=== PATIENT | female | born 2000 | race African-American/Black ===

== ENCOUNTER 2023-12-26 20:49 | Emergency (ER) | payer OTHER ==
[2023-12-26 21:05] VITALS: RESP 18; TEMP 98.5; BMI 37.1
[2023-12-26] MEDS: ACETAMINOPHEN 1000 MG/100 ML BAG IVPB ONE (21:49)
[2023-12-26] MEDS: LACTATED RINGERS SOLUTION 1000 ML INFUS.BAG IV ONE (21:49)
[2023-12-26] MEDS ORDERED: METOCLOPRAMIDE HCL INJECTION 10 MG/2 ML VIAL ONE (21:50)
[2023-12-26] MEDS: METOCLOPRAMIDE HCL INJECTION 10 MG/2 ML VIAL IVPB ONE (21:52)
[2023-12-26 21:56] LABS: BASO % 0.5 % (0-2.0); EOS % 0.5 % (0-4.5); HEMATOCRIT 39.6 % (32.4-45.2); HEMOGLOBIN 13.4 GM/dL (10.7-15.3); LYMPH % 39.1 % (8-40); MCH 29.1 pg (25.7-33.7); MCHC 33.9 g/dl (32.0-36.0); MEAN CELL VOLUME 85.8 fl (80-96); MEAN PLT VOLUME 9.2 fl (7.5-11.1); MONO % 7.2 % (3.8-10.2); NEUT % 52.7 % (42.8-82.8); PLATELET COUNT 357 10^3/uL (134-434); RBC 4.62 M/mm3 (3.60-5.2); RDW 13.5 % (11.6-15.6); WHITE BLOOD COUNT 12.1 K/mm3 (4.0-10.0)
[2023-12-26 22:14] LABS: PH,URINE 6.5 (5.0-8.0); URINE APPEARANCE CLEAR; URINE BILIRUBIN NEGATIVE (NEGATIVE); URINE COLOR YELLOW; URINE GLUCOSE (UA) NEGATIVE (NEGATIVE); URINE KETONE NEGATIVE (NEGATIVE); URINE LEUK ESTERASE NEGATIVE (NEGATIVE); URINE NITRITE NEGATIVE (NEGATIVE); URINE PROTEIN NEGATIVE (NEGATIVE)
[2023-12-26 22:19] LABS: POTASSIUM 4.2 mmol/L (3.5-5.1)
[2023-12-26 22:21] LABS: ALBUMIN 3.3 g/dl (3.4-5.0); BLOOD UREA NITROGEN 3.7 mg/dL (7-18); CALCIUM 9.1 mg/dL (8.5-10.1)
[2023-12-26 22:24] LABS: CREATININE 0.6 mg/dL (0.55-1.3)
[2023-12-26 22:26] LABS: BILIRUBIN,TOTAL 0.2 mg/dL (0.2-1)
[2023-12-26 22:35] VITALS: BP 107/54; PULSE 75
[2023-12-26 22:46] LABS: INR 1.04 (0.83-1.09); PROTHROMBIN TIME (PATIENT) 12.1 SEC (9.7-13.0)
[2023-12-26 22:48] LABS: ACTIVATED PTT 29.5 SECONDS (25.2-36.5)
== END 2023-12-27 00:08 | disposition home or self-care (01) ==
LOC: JER 20:49
PROC: 3E033NZ Introduction of Analgesics, Hypnotics, Sedatives into Peripheral Vein, Percutaneous Approach (ICD-10-PCS; principal; 2023-12-26)
PROC: 3E033GC Introduction of Other Therapeutic Substance into Peripheral Vein, Percutaneous Approach (ICD-10-PCS; 2023-12-26)
DX: O99.891 Other specified diseases and conditions complicating pregnancy (principal); R51.9 Headache, unspecified; Z3A.16 16 weeks gestation of pregnancy
CPT/HCPCS: 36415; 80053; 81003; 83615; 83735; 84702; 85025; 85610; 85730; 87086; 93005; 93010; 99284-25; J0131

== ENCOUNTER 2024-01-06 12:59 | Emergency (ER) | payer OTHER ==
[2024-01-06 13:27] VITALS: BP 136/73; RESP 18; TEMP 98.7; BMI 37.1
[2024-01-06 14:08] LABS: THROAT:GRP A STREP NOT DETECTED (NOTDETECTED)
[2024-01-06] MEDS: SODIUM CHLORIDE 0.9% 500 ML INFUS.BAG IV ONE (14:12)
[2024-01-06 15:11] VITALS: PULSE 104
== END 2024-01-06 15:11 | disposition home or self-care (01) ==
LOC: JER 12:59
DX: O99.891 Other specified diseases and conditions complicating pregnancy (principal); R50.9 Fever, unspecified; R05.9 Cough, unspecified; O99.352 Diseases of the nervous system complicating pregnancy, second trimester; R51.9 Headache, unspecified; O99.512 Diseases of the respiratory system complicating pregnancy, second trimester; J06.9 Acute upper respiratory infection, unspecified; Z20.822 Contact with and (suspected) exposure to COVID-19; Z3A.18 18 weeks gestation of pregnancy
CPT/HCPCS: 0241U-QW; 87651; 99283-25

== ENCOUNTER 2024-05-23 10:03 | Inpatient (IN) | payer OTHER ==
[2024-05-23] MEDS: DEXTROSE 5%-LACTATED RINGERS 1,000 ML IV SCH (10:30)
[2024-05-23] MEDS: CITRIC ACID/SODIUM CITRATE 30 ML UNIT-DOSE CUP PO ONE (12:30)
[2024-05-23] MEDS ORDERED: IBUPROFEN 600 MG TABLET (FP) PO PRN (13:30)
[2024-05-23] MEDS ORDERED: ACETAMINOPHEN 325 MG TABLET (FP) PO PRN (13:30)
[2024-05-23] MEDS ORDERED: FENTANYL CITRATE/PF 50 MCG/ML VIAL ONE (14:11)
[2024-05-23] MEDS ORDERED: morphine SULFATE/PF 1 MG/2 ML (2cc Syringe - QUVA) ONE (14:11)
[2024-05-23] MEDS ORDERED: ceFAZolin SODIUM 1 GM VIAL ONE ×2 (14:30)
[2024-05-23] MEDS ORDERED: KETOROLAC TROMETHAMINE 30 MG/1 ML VIAL ONE (14:34)
[2024-05-23] MEDS ORDERED: DEXAMETHASONE SOD PHOSPHATE 4 MG/1 ML VIAL ONE (14:34)
[2024-05-23] MEDS ORDERED: OXYTOCIN 10 UNITS/ML VIAL ONE ×3 (14:34)
[2024-05-23] MEDS ORDERED: ONDANSETRON 4 MG/2 ML VIAL ONE ×2 (14:34)
[2024-05-23] MEDS: OXYTOCIN 20 UNITS in 0.9% NS 20 UNIT/1,000 ML INFUS.BAG IV SCH (15:30)
[2024-05-23] MEDS ORDERED: METHYLERGONOVINE MALEATE 0.2 MG/1 ML AMP IM PRN (15:44)
[2024-05-23] MEDS ORDERED: IBUPROFEN 800 MG/8 ML IJ IVPB PRN (15:44)
[2024-05-23] MEDS ORDERED: OXYTOCIN 20 UNITS in 0.9% NS 20 UNIT/1,000 ML INFUS.BAG IV ONE (16:30)
[2024-05-23] MEDS ORDERED: ACETAMINOPHEN INJECTION 100 ML ONE (16:37)
[2024-05-23] MEDS: ACETAMINOPHEN 1000 MG/100 ML BAG IVPB PRN (16:49)
[2024-05-24] MEDS: FERROUS SO4 325 MG TABLET (FP) PO SCH (08:53)
[2024-05-24 09:16] LABS: BASO % 0.2 % (0-2.0); HEMATOCRIT 31.9 % (32.4-45.2); HEMOGLOBIN 9.8 GM/dL (10.7-15.3); MCH 20.7 pg (25.7-33.7); MCHC 30.7 g/dl (32.0-36.0); MEAN CELL VOLUME 67.3 fl (80-96); MEAN PLT VOLUME 8.7 fl (7.5-11.1); MONO % 7.9 % (3.8-10.2); NEUT % 77.9 % (42.8-82.8); PLATELET COUNT 326 10^3/uL (134-434); RBC 4.75 M/mm3 (3.60-5.2); RDW 18.9 % (11.6-15.6); WHITE BLOOD COUNT 15.6 K/mm3 (4.0-10.0)
[2024-05-24] MEDS: PRENATAL VITAMINS W/ FOLIC ACID TABLET (FP) PO SCH (11:49)
[2024-05-24] MEDS: IBUPROFEN 600 MG TABLET (FP) PO PRN (11:49)
[2024-05-24] MEDS: SIMETHICONE 80 MG TAB.CHEW (FP) PO PRN (11:51)
[2024-05-24] MEDS ORDERED: BISACODYL 10 MG SUPP.RECT RC PRN (15:44)
[2024-05-24] MEDS: SENNOSIDES/DOCUSATE COMBO (SENNA PLUS) TABLET (UD) PO PRN (21:32)
[2024-05-24] MEDS: oxyCODONE HCL 5 MG TABLET PO PRN (21:34)
[2024-05-25] MEDS: ACETAMINOPHEN 325 MG TABLET (FP) PO PRN (11:01)
[2024-05-25] MEDS: oxyCODONE HCL 5 MG TABLET PO PRN (12:58)
[2024-05-26 12:45] VITALS: BP 134/93; PULSE 89; RESP 18; TEMP 98.1
== END 2024-05-26 16:45 | disposition home or self-care (01) | DRG 540 ==
LOC: JLDR 10:03 → J3W 18:04
PROVIDERS: ADMIT Obstetrics & Gynecology; ATTEND Obstetrics & Gynecology
PROC: 10D00Z1 Extraction of Products of Conception, Low, Open Approach (ICD-10-PCS; principal; 2024-05-23)
DX: O36.5930 Maternal care for other known or suspected poor fetal growth, third trimester, not applicable or unspecified (principal); O75.89 Other specified complications of labor and delivery; Q24.8 Other specified congenital malformations of heart; Z3A.37 37 weeks gestation of pregnancy; Z37.0 Single live birth
CPT/HCPCS: 36415; 80053; 85025; 85610; 85730; 86780; 86803; 86850; 86900; 86901; 87389; 88307-TC; J0131